=== PATIENT | female | born 1940 | race Caucasian/White ===

== ENCOUNTER 2017-11-19 07:37 | Outpatient (CLI) | payer MEDICARE ==
--- NOTE | 2017-11-20 07:39 | NM ---
HEPATOBILIARY STUDY: 11/19/2017 HISTORY: Abnormal results on liver function studies. Right upper quadrant abdominal pain. Globus sensation. RADIOPHARMACEUTICAL: Technetium 99m mebrofenin 4.9 millicuries IV. FINDINGS: There is normal uptake and excretion of radiotracer by the liver. Faint gallbladder activity is visu alized by 13 minutes with an increase in activity in gallbladder imaging up to 60 minutes. Bowel abn ormality is visualized by 26 minutes. After 60 minutes of imaging, 8 oz of Ensure was administered p .o., and a gallbladder ejection fraction of 64% was obtained, which is within normal limits. IMPRESSION: 1. No evidence of a cystic or common duct obstruction. 2. Normal gallbladder ejection fraction. POS: [facility]
== END 2017-11-19 07:38 | disposition home or self-care (01) ==
LOC: NM 07:37
PROVIDERS: ATTEND Internal Medicine Gastroenterology
DX: R10.11 Right upper quadrant pain (principal); F45.8 Other somatoform disorders; R94.5 Abnormal results of liver function studies
CPT/HCPCS: 78227; A9537